=== PATIENT | male | born 1970 | race Hispanic/Latino ===

== ENCOUNTER 2024-08-15 08:46 | Inpatient (IN) | payer SELFPAY ==
[~2024-08-15] VITALS: Ht 175.3 cm; Wt 54.4 kg
[2024-08-15 10:21] LABS: CREATININE 0.7 mg/dL (0.5-1.3); POTASSIUM 3.7 mmol/L (3.5-5.1)
[2024-08-15 10:24] LABS: BASOPHILS # (AUTO) 0.02 K/uL (0.00-0.20); BASOPHILS % (AUTO) 0.1 % (0.0-5.0); EOSINOPHILS # (AUTO) 0.01 K/uL (0.00-0.70); EOSINOPHILS % (AUTO) 0.1 % (0.0-8.0); HEMATOCRIT 30.3 % (42-54); IMMATURE GRANULOCYTE ABSOLUTE 0.09 K/uL (0-1); LYMPHOCYTES # (AUTO) 1.7 K/uL (1.0-4.8); LYMPHOCYTES % (AUTO) 11.6 % (21.0-51.0); MEAN CORPUSCULAR HEMOGLOBIN 29.5 pg (27.0-33.0); MEAN CORPUSCULAR VOLUME 89.4 fL (79-99); MONOCYTES # (AUTO) 0.6 K/uL (0.1-1.0); MONOCYTES % (AUTO) 4.3 % (3.0-13.0); NEUTROPHILS # (AUTO) 11.9 K/uL (1.8-7.7); NEUTROPHILS % (AUTO) 83.3 % (40.0-77.0); PLATELET COUNT (AUTO) 660 K/uL (130-400); RED BLOOD CELL COUNT(AUTO) 3.39 MIL/uL (4.50-6.20); RED CELL DISTRIBUTION WIDTH 13.8 % (11.0-15.5); WHITE BLOOD COUNT (AUTO) 14.3 K/uL (4.8-10.8)
[2024-08-15 10:26] LABS: BILIRUBIN,TOTAL 0.5 mg/dL (0.2-1.0); TOTAL PROTEIN, SERUM 7.2 g/dL (6.0-8.3)
[2024-08-15 10:30] LABS: INR 1.07 (0.85-1.15); PROTHROMBIN TIME 11.5 SEC (9.6-11.6)
[2024-08-15 10:32] LABS: PARTIAL THROMBOPLASTIN TIME 29.1 SEC (26.3-35.5)
[2024-08-15] MEDS: morPHINE 2 MG SYG IVP ONE (11:17)
[2024-08-15] MEDS ORDERED: MAG/ALUM/SIMETH 30 ML UDCUP PO PRN (14:30)
[2024-08-15] MEDS ORDERED: NITROGLYCERIN 0.4 MG SL TAB SL PRN (14:30)
[2024-08-15] MEDS ORDERED: LACTULOSE 20 GM/30 ML UDCUP PO PRN (14:30)
[2024-08-15] MEDS ORDERED: guaiFENesin-DM 200/20MG 10ML PO PRN (14:30)
[2024-08-15] MEDS ORDERED: ondanSETRON 4MG INJ IV PRN (14:30)
[2024-08-15] MEDS ORDERED: acetaMINOPHEN 325 MG TAB PO PRN (14:30)
[2024-08-15] MEDS ORDERED: IOHEXOL 350 MG/ML 100ML INFUS..BTL IV ONE (14:45)
[2024-08-15] MEDS: 0.9%NACL 1000ML 1,000 ML IV SCH (14:51)
[2024-08-15 16:30] VITALS: BP 129/78; PULSE 91; RESP 18; TEMP 97.6
[2024-08-15 17:38] VITALS: O2SAT 98
[2024-08-15 19:20] VITALS: BP 100/68; PULSE 83; RESP 18; TEMP 98.5
[2024-08-15 20:00] VITALS: O2SAT 98
[2024-08-15] MEDS: dexaMETHasone SOD PHOSPHATE 4 MG/ML 1ML VIAL IV SCH (20:29)
[2024-08-15] MEDS: morPHINE 2 MG SYG IV PRN (20:29)
[2024-08-15] MEDS: ZOSYN 3.375GM+NS 50ML 50 ML IV SCH (20:29)
[2024-08-16] VITALS (9 sets, daily range): BP systolic 104–121; BP diastolic 59–80; PULSE 76–85; RESP 16–20; TEMP 97.6–98.9; O2SAT 93–98
[2024-08-16 03:33] LABS: BASOPHILS # (AUTO) 0.02 K/uL (0.00-0.20); BASOPHILS % (AUTO) 0.1 % (0.0-5.0); HEMATOCRIT 30.1 % (42-54); IMMATURE GRANULOCYTE ABSOLUTE 0.08 K/uL (0-1); LYMPHOCYTES # (AUTO) 0.9 K/uL (1.0-4.8); LYMPHOCYTES % (AUTO) 5.7 % (21.0-51.0); MEAN CORPUSCULAR HEMOGLOBIN 29.3 pg (27.0-33.0); MEAN CORPUSCULAR HGB CONC 32.6 g/dL (32.0-36.0); MEAN CORPUSCULAR VOLUME 89.9 fL (79-99); MONOCYTES # (AUTO) 0.2 K/uL (0.1-1.0); MONOCYTES % (AUTO) 1.5 % (3.0-13.0); NEUTROPHILS # (AUTO) 13.7 K/uL (1.8-7.7); NEUTROPHILS % (AUTO) 92.2 % (40.0-77.0); PLATELET COUNT (AUTO) 577 K/uL (130-400); RED BLOOD CELL COUNT(AUTO) 3.35 MIL/uL (4.50-6.20); RED CELL DISTRIBUTION WIDTH 13.8 % (11.0-15.5); WHITE BLOOD COUNT (AUTO) 14.8 K/uL (4.8-10.8)
[2024-08-16 03:41] LABS: CREATININE 0.8 mg/dL (0.5-1.3); POTASSIUM 4.8 mmol/L (3.5-5.1)
[2024-08-16] MEDS: PANTOPrazole 40 MG/VIAL IVP SCH (09:45)
[2024-08-16] MEDS: acetaMINOPHEN 325 MG TAB PO PRN (12:34)
[2024-08-16] MEDS ORDERED: morPHINE 4 MG SYG IV PRN (22:00)
[2024-08-16] MEDS ORDERED: morPHINE 4 MG SYG IM PRN (22:30)
[2024-08-16] MEDS: morPHINE 4 MG SYG IV PRN (23:13)
[2024-08-17] VITALS (10 sets, daily range): BP systolic 97–124; BP diastolic 45–79; PULSE 65–92; RESP 16–20; TEMP 97.7–98.6; O2SAT 96–98
[2024-08-17 03:58] LABS: BASOPHILS # (AUTO) 0.02 K/uL (0.00-0.20); BASOPHILS % (AUTO) 0.1 % (0.0-5.0); HEMATOCRIT 28.4 % (42-54); IMMATURE GRANULOCYTE ABSOLUTE 0.14 K/uL (0-1); LYMPHOCYTES # (AUTO) 1.4 K/uL (1.0-4.8); LYMPHOCYTES % (AUTO) 7.5 % (21.0-51.0); MEAN CORPUSCULAR HGB CONC 31.7 g/dL (32.0-36.0); MEAN CORPUSCULAR VOLUME 91.6 fL (79-99); MONOCYTES # (AUTO) 0.4 K/uL (0.1-1.0); MONOCYTES % (AUTO) 2.4 % (3.0-13.0); NEUTROPHILS # (AUTO) 16.1 K/uL (1.8-7.7); NEUTROPHILS % (AUTO) 89.2 % (40.0-77.0); PLATELET COUNT (AUTO) 479 K/uL (130-400); RED CELL DISTRIBUTION WIDTH 13.6 % (11.0-15.5); WHITE BLOOD COUNT (AUTO) 18.1 K/uL (4.8-10.8)
[2024-08-17 04:12] LABS: ALBUMIN 1.8 g/dL (3.5-5.0); BILIRUBIN,TOTAL 0.3 mg/dL (0.2-1.0); CREATININE 0.8 mg/dL (0.5-1.3); MAGNESIUM 1.7 mg/dL (1.80-2.40); POTASSIUM 4.2 mmol/L (3.5-5.1); TOTAL PROTEIN, SERUM 6.3 g/dL (6.0-8.3)
[2024-08-17] MEDS: GABApentin 100 MG CAPSULE PO SCH ×2 (09:33→20:21)
[2024-08-17] MEDS: MORPHINE 15 MG PO SCH ×2 (09:34→20:21)
[2024-08-17] MEDS: MAGNESIUM 2GM PREMIX 50ML 50 ML IV SCH (09:35)
[2024-08-17] MEDS ORDERED: METH-820 PO (13:01)
[2024-08-17] MEDS ORDERED: MORPHINE ER PO (13:01)
[2024-08-17] MEDS ORDERED: GABA-529 PO (13:01)
[2024-08-17] MEDS: morPHINE 2 MG SYG IV PRN (17:22)
[2024-08-18] VITALS (7 sets, daily range): BP systolic 98–134; BP diastolic 53–73; PULSE 68–97; RESP 17–20; TEMP 97.5–98.2; O2SAT 7–97
[2024-08-18 05:59] LABS: BASOPHILS # (AUTO) 0.01 K/uL (0.00-0.20); BASOPHILS % (AUTO) 0.1 % (0.0-5.0); HEMATOCRIT 27.2 % (42-54); IMMATURE GRANULOCYTE ABSOLUTE 0.14 K/uL (0-1); LYMPHOCYTES # (AUTO) 1.7 K/uL (1.0-4.8); LYMPHOCYTES % (AUTO) 9.6 % (21.0-51.0); MEAN CORPUSCULAR HEMOGLOBIN 29.2 pg (27.0-33.0); MEAN CORPUSCULAR HGB CONC 31.3 g/dL (32.0-36.0); MEAN CORPUSCULAR VOLUME 93.5 fL (79-99); MONOCYTES # (AUTO) 0.5 K/uL (0.1-1.0); MONOCYTES % (AUTO) 2.8 % (3.0-13.0); NEUTROPHILS # (AUTO) 15.2 K/uL (1.8-7.7); NEUTROPHILS % (AUTO) 86.7 % (40.0-77.0); PLATELET COUNT (AUTO) 435 K/uL (130-400); RED BLOOD CELL COUNT(AUTO) 2.91 MIL/uL (4.50-6.20); RED CELL DISTRIBUTION WIDTH 13.5 % (11.0-15.5); WHITE BLOOD COUNT (AUTO) 17.6 K/uL (4.8-10.8)
[2024-08-18 06:25] LABS: ALBUMIN 1.8 g/dL (3.5-5.0); BILIRUBIN,TOTAL 0.2 mg/dL (0.2-1.0); CREATININE 0.6 mg/dL (0.5-1.3); MAGNESIUM 1.9 mg/dL (1.80-2.40); TOTAL PROTEIN, SERUM 6.1 g/dL (6.0-8.3)
[2024-08-19] VITALS (14 sets, daily range): BP systolic 100–125; BP diastolic 62–78; PULSE 68–86; RESP 15–19; TEMP 97.3–98.3; O2SAT 98–100
[2024-08-19] MEDS ORDERED: IOHEXOL-350 50ML VIAL IV ONE (10:07)
[2024-08-19] MEDS ORDERED: LIDOCAINE HCL 400MG/20ML VIAL ONE (10:07)
[2024-08-19] MEDS ORDERED: HEParin-NS 1,000 UNIT/500 ML 500 ML IV ONE (10:07)
[2024-08-19] MEDS ORDERED: FENTanyl CITRate PF 50 MCG/1 ML 2ML VIAL ONE (10:27)
[2024-08-19] MEDS ORDERED: morPHINE 2 MG SYG IV PRN (13:30)
[2024-08-19] MEDS ORDERED: GABApentin 100 MG CAPSULE PO SCH (15:30)
[2024-08-19] MEDS: GABAPENTIN 300 MG CAPSULE PO SCH (21:29)
[2024-08-19] MEDS: morPHINE 4 MG SYG IV PRN (22:54)
[2024-08-20] VITALS (8 sets, daily range): BP systolic 97–113; BP diastolic 59–84; PULSE 78–99; RESP 16–18; TEMP 97.9–98.5; O2SAT 98–100
[2024-08-20 12:46] LABS: HEMATOCRIT 28.9 % (42-54); MEAN CORPUSCULAR HEMOGLOBIN 29.1 pg (27.0-33.0); MEAN CORPUSCULAR HGB CONC 31.8 g/dL (32.0-36.0); MEAN CORPUSCULAR VOLUME 91.5 fL (79-99); RED BLOOD CELL COUNT(AUTO) 3.16 MIL/uL (4.50-6.20); RED CELL DISTRIBUTION WIDTH 13.7 % (11.0-15.5); WHITE BLOOD COUNT (AUTO) 17.8 K/uL (4.8-10.8)
[2024-08-21 04:00] VITALS: BP 111/64; PULSE 82; RESP 18; TEMP 99
[2024-08-21 05:24] LABS: BASOPHILS # (AUTO) 0.03 K/uL (0.00-0.20); BASOPHILS % (AUTO) 0.2 % (0.0-5.0); HEMATOCRIT 26.9 % (42-54); LYMPHOCYTES # (AUTO) 1.8 K/uL (1.0-4.8); LYMPHOCYTES % (AUTO) 9.8 % (21.0-51.0); MEAN CORPUSCULAR HEMOGLOBIN 29.7 pg (27.0-33.0); MEAN CORPUSCULAR VOLUME 92.8 fL (79-99); MONOCYTES # (AUTO) 0.7 K/uL (0.1-1.0); MONOCYTES % (AUTO) 3.6 % (3.0-13.0); NEUTROPHILS # (AUTO) 15.4 K/uL (1.8-7.7); NEUTROPHILS % (AUTO) 83.2 % (40.0-77.0); PLATELET COUNT (AUTO) 427 K/uL (130-400); WHITE BLOOD COUNT (AUTO) 18.5 K/uL (4.8-10.8)
[2024-08-21 05:43] LABS: CREATININE 0.6 mg/dL (0.5-1.3); MAGNESIUM 1.6 mg/dL (1.80-2.40); PHOSPHORUS 2.2 mg/dL (2.5-4.9); POTASSIUM 4.4 mmol/L (3.5-5.1)
[2024-08-21 07:49] VITALS: BP 116/76; PULSE 90; RESP 16; TEMP 98.9
[2024-08-21 08:00] VITALS: O2SAT 100
[2024-08-21 10:47] VITALS: BP 107/65; PULSE 84; RESP 16; TEMP 98.6
[2024-08-21 16:01] VITALS: BP 105/63; PULSE 84; RESP 16; TEMP 98.3
[2024-08-21 20:00] VITALS: BP 108/62; PULSE 93; RESP 20; TEMP 98.3; O2SAT 99
[2024-08-22] VITALS: BP 117/69; PULSE 90; RESP 20; TEMP 98.3
[2024-08-22] MEDS: DiphenhydrAMINE HCL 50 MG/ML VIAL IV PRN (00:55)
[2024-08-22 04:00] VITALS: BP 112/70; PULSE 57; RESP 20; TEMP 98.4
[2024-08-22 05:39] LABS: BASOPHILS # (AUTO) 0.04 K/uL (0.00-0.20); BASOPHILS % (AUTO) 0.2 % (0.0-5.0); HEMATOCRIT 28.1 % (42-54); IMMATURE GRANULOCYTE ABSOLUTE 0.88 K/uL (0-1); LYMPHOCYTES # (AUTO) 1.9 K/uL (1.0-4.8); LYMPHOCYTES % (AUTO) 8.9 % (21.0-51.0); MEAN CORPUSCULAR HEMOGLOBIN 29.2 pg (27.0-33.0); MEAN CORPUSCULAR HGB CONC 31.3 g/dL (32.0-36.0); MEAN CORPUSCULAR VOLUME 93.4 fL (79-99); MONOCYTES # (AUTO) 0.7 K/uL (0.1-1.0); MONOCYTES % (AUTO) 3.5 % (3.0-13.0); NEUTROPHILS # (AUTO) 17.6 K/uL (1.8-7.7); NEUTROPHILS % (AUTO) 83.2 % (40.0-77.0); PLATELET COUNT (AUTO) 459 K/uL (130-400); RED BLOOD CELL COUNT(AUTO) 3.01 MIL/uL (4.50-6.20); RED CELL DISTRIBUTION WIDTH 14.5 % (11.0-15.5); WHITE BLOOD COUNT (AUTO) 21.1 K/uL (4.8-10.8)
[2024-08-22 06:03] LABS: CREATININE 0.6 mg/dL (0.5-1.3); POTASSIUM 4.2 mmol/L (3.5-5.1)
[2024-08-22 08:00] VITALS: BP 111/73; PULSE 76; RESP 20; TEMP 98.3; O2SAT 99
[2024-08-22 12:00] VITALS: BP 104/66; PULSE 81; RESP 16; TEMP 98.4
[2024-08-22 17:40] LABS: INR 0.95 (0.85-1.15); PROTHROMBIN TIME 10.3 SEC (9.6-11.6)
[2024-08-22 17:41] LABS: PARTIAL THROMBOPLASTIN TIME 25.8 SEC (26.3-35.5)
[2024-08-22] MEDS ORDERED: IOHEXOL-350 50ML VIAL IV ONE (17:41)
[2024-08-22] MEDS ORDERED: LIDOCAINE HCL 400MG/20ML VIAL ONE (17:41)
[2024-08-22] MEDS ORDERED: HEParin-NS 1,000 UNIT/500 ML 500 ML IV ONE (17:41)
[2024-08-22 20:00] VITALS: BP 105/76; PULSE 87; RESP 18; TEMP 98.2; O2SAT 95
[2024-08-22 23:59] VITALS: BP 107/71; PULSE 81; RESP 22; TEMP 98.3
[2024-08-23] VITALS (7 sets, daily range): BP systolic 100–110; BP diastolic 59–64; PULSE 78–120; RESP 16–19; TEMP 97.4–99.6; O2SAT 97–98
[2024-08-23] MEDS: DiphenhydrAMINE HCL 25 MG CAPSULE PO PRN (00:11)
[2024-08-23 05:19] LABS: BASOPHILS # (AUTO) 0.04 K/uL (0.00-0.20); BASOPHILS % (AUTO) 0.2 % (0.0-5.0); HEMATOCRIT 27.4 % (42-54); LYMPHOCYTES # (AUTO) 1.9 K/uL (1.0-4.8); LYMPHOCYTES % (AUTO) 8.1 % (21.0-51.0); MEAN CORPUSCULAR HEMOGLOBIN 29.5 pg (27.0-33.0); MEAN CORPUSCULAR HGB CONC 31.4 g/dL (32.0-36.0); MEAN CORPUSCULAR VOLUME 93.8 fL (79-99); MONOCYTES # (AUTO) 0.8 K/uL (0.1-1.0); MONOCYTES % (AUTO) 3.3 % (3.0-13.0); NEUTROPHILS # (AUTO) 19.7 K/uL (1.8-7.7); NEUTROPHILS % (AUTO) 84.5 % (40.0-77.0); PLATELET COUNT (AUTO) 447 K/uL (130-400); RED BLOOD CELL COUNT(AUTO) 2.92 MIL/uL (4.50-6.20); WHITE BLOOD COUNT (AUTO) 23.3 K/uL (4.8-10.8)
[2024-08-23 05:30] LABS: CREATININE 0.6 mg/dL (0.5-1.3); POTASSIUM 4.2 mmol/L (3.5-5.1)
[2024-08-23 06:18] LABS: PLATELET MORPHOLOGY PLT CLUMPS PRESENT; WBC MORPHOLOGY CONSISTENT W/DIFF
[2024-08-24] VITALS (7 sets, daily range): BP systolic 102–116; BP diastolic 61–74; PULSE 79–101; RESP 18–20; TEMP 97.5–98.7; O2SAT 96–98
[2024-08-24] MEDS: FENTANYL 25 MCG/HR TD SCH (10:03)
[2024-08-24] MEDS: GABAPENTIN 300 MG CAPSULE PO SCH (14:33)
[2024-08-25] VITALS (8 sets, daily range): BP systolic 107–119; BP diastolic 58–78; PULSE 80–96; RESP 16–18; TEMP 97.8–98.6; O2SAT 98
[2024-08-25] MEDS: ZOSYN 3.375GM +NS 50ML IV SCH (04:32)
[2024-08-25] MEDS ORDERED: GABA-1405 PO (13:36)
[2024-08-25] MEDS ORDERED: DEXA4TAB PO (13:38)
[2024-08-25] MEDS: morPHINE 2 MG SYG IVP PRN (19:15)
[2024-08-26] VITALS: BP 111/70; PULSE 92; RESP 17; TEMP 98.7
[2024-08-26 04:00] VITALS: BP 102/60; PULSE 94; RESP 16; TEMP 97.7
[2024-08-26 08:01] VITALS: BP 118/68; PULSE 96; RESP 16; TEMP 98.3
[2024-08-26 09:45] VITALS: O2SAT 99
[2024-08-26 11:26] VITALS: BP 133/66; PULSE 94; RESP 16; TEMP 98.3
== END 2024-08-26 15:15 | disposition hospice, home (50) | DRG 394 ==
LOC: EDH 08:46 → EDHIP 08:47 → 2AH 16:36 → 3AH 08-17 12:48
PROVIDERS: ADMIT Internal Medicine; ATTEND Internal Medicine
PROC: 0T25X0Z Change Drainage Device in Kidney, External Approach (ICD-10-PCS; principal; 2024-08-19)
PROC: 0T25X0Z Change Drainage Device in Kidney, External Approach (ICD-10-PCS; 2024-08-22)
DX: K94.01 Colostomy hemorrhage (principal); C18.9 Malignant neoplasm of colon, unspecified; N13.6 Pyonephrosis; E87.1 Hypo-osmolality and hyponatremia; T83.032A Leakage of nephrostomy catheter, initial encounter; E87.6 Hypokalemia; R62.7 Adult failure to thrive; D64.9 Anemia, unspecified; R19.00 Intra-abdominal and pelvic swelling, mass and lump, unspecified site; Z66 Do not resuscitate; M54.30 Sciatica, unspecified side; E86.0 Dehydration; Z91.199 Patient's noncompliance with other medical treatment and regimen due to unspecified reason; Y73.2 Prosthetic and other implants, materials and accessory gastroenterology and urology devices associated with adverse incidents; Z87.442 Personal history of urinary calculi
CPT/HCPCS: 36215; 36415; 50435; 74150; 74178; 80048; 80053; 82306; 82607; 82948; 83605; 83735; 84100; 84145; 84207; 85025; 85027; 85610; 85730; 87040; 96374; 99156; 99157; C1769; G0378; J1100; J1200; J1644; J2270; J2470; J2543; J3010; J3475; J3490; J7030; Q0163; Q9967; A4600; C1729; C1894